=== PATIENT | female | born 1990 | race Caucasian/White ===

== ENCOUNTER 2017-10-23 14:21 | Emergency (ER) | payer OTHER ==
[~2017-10-23] VITALS: Ht 157.4 cm; Wt 49.9 kg
[~2017-10-23 14:21] MED LIST: AMOXICILLIN500 MG PO; AMOXIL500 MG PO; AUGMENTIN 875 M1 TA1; BACTRIM DS 8001 TA1 PO; CLARITIN-D 12 H1 TAB PO; CLARITIN10 MG PO; DICLOFENAC POT.50 MG PO; FLEXERIL5 MG PO; FLONASE 0.05% 121 EA NAS; IBU800 M1 PO; KEFLEX500 MG PO; MACROBID100 M1 PO; MACRODANTIN100 M1 PO; MOTRIN 800 MG E4 TAB PO; MOTRIN800 MG PO; NAPROSYN250 MG PO; PERCOCET 325 MG1 TA2 PO; PERCOCET 325 MG1 TAB; PHENERGAN W/DM120 ML PO; PREDNICOT10 MG PO; PREDNISONE10 MG PO; PRENATAL1 TA1 PO; ZANTAC150 MG PO; ZITHROMAX Z PA250 MG PO; ZITHROMAX250 MG PO
[2017-10-23] MEDS ORDERED: DOXYCYCLINE100 M3 PO (14:49)
== END 2017-10-23 14:57 | disposition home or self-care (01) ==
LOC: ED 14:21
DX: L02.412 Cutaneous abscess of left axilla (principal); Z98.890 Other specified postprocedural states